=== PATIENT | male | born 1980 | race Caucasian/White ===

== ENCOUNTER 2020-06-20 10:30 | Day surgery (SDC) | payer OTHER ==
[2020-06-15 11:25] VITALS: BMI 40.3
[~2020-06-20 10:30] MED LIST: LACTATED RINGERS SOLUTION 1,000 ML IV SCH; LIDOCAINE HCL 2% (50ML VIAL) INF ONE; ONDANSETRON 4 MG/2 ML VIAL IVPUSH PRN; PROMETHAZINE HCL 25 MG/1 ML VIAL IVPUSH PRN; oxyCODONE HCL 5 MG TABLET PO PRN
[2020-06-20] MEDS ORDERED: MIDAZOLAM HCL 2 MG/2 ML SINGLE DOSE VIAL ONE (11:58)
[2020-06-20] MEDS ORDERED: PROPOFOL 20 ML ONE (11:58)
[2020-06-20] MEDS ORDERED: LIDOCAINE HCL 2% (50ML VIAL) INF ONE (12:08)
[2020-06-20 12:54] VITALS: PULSE 80
[2020-06-20 13:35] VITALS: BP 124/72; TEMP 98
== END 2020-06-20 13:20 | disposition home or self-care (01) ==
LOC: FASU 10:30
PROVIDERS: ATTEND Orthopaedic Surgery Hand Surgery
PROC: 0LN70ZZ Release Right Hand Tendon, Open Approach (ICD-10-PCS; principal; 2020-06-20 12:12)
DX: M65.311 Trigger thumb, right thumb (principal)